=== PATIENT | female | born 1945 | race Caucasian/White ===

== ENCOUNTER → 2016-06-29 | Day surgery (SDC) | payer MEDICARE ==
[~2016-06-29] MED LIST: ADVIL200 M1; AMLODIPINE-BENA1 CAP PO; ASPIRIN EC81 M1 PO; GLUCOTROL PO; JANUMET 50-1,1 UDTAB PO; LISINOPRIL20 MG PO; LOTENSIN20 MG PO; SIMVASTATIN20 MG PO
--- NOTE | ~2016-06-29 | OR ---
Unit #: [id number] #: [id number] Patient: MICKEY DIAZ [id number] [address] [address] [id number] MR#: [id number] NAME: MICKEY DIAZ ROOM: Date of Procedure: 06/29/2016 Admission Date: 06/29/2016 Surgeon: Edison Briceno M.D. : 1945 Attending Physician: Edison Briceno M.D. Primary Care Physician: Elmer Vu M.D. OPERATIVE REPORT PROCEDURE PERFORMED Colonoscopy with snare polypectomy. INDICATIONS FOR PROCEDURE The patient with history of serrated adenoma with very high risk. MEDICATIONS Monitored anesthesia. POSTOPERATIVE FINDINGS 1. Previous site of polypectomy was identified and appears normal without any residual or recurrent polyp. 2. A 6 mm polyp, rectum, snared and sent for histopathology. 3. Internal hemorrhoids. PLAN Repeat colonoscopy in 3 years. DESCRIPTION OF PROCEDURE The patient was explained of the procedure, risks, and benefits along with the risks and benefits of anesthesia. She was brought to the endoscopy room. Propofol anesthesia was given. Rectal exam was done, which was normal. Colonoscope was lubricated, passed up the rectum, advanced under direct vision all the way to the cecum. Cecum was identified by ileocecal valve and appendiceal orifice. Previous polypectomy site was identified. No recurrent growth was seen. Polyp seen in rectum was snared and sent for histopathology. I retroflexed in the rectum, internal hemorrhoids were noted. Gently, the scope was pulled out. She tolerated it well. No major complications were seen. Dictated by... Bharat Langley/roseline TD: 07/09/2016 01:20 JOB #: [id number] Unit #: [id number] #: [id number] Patient: MICKEY DIAZ OPERATIVE REPORT X Edison Briceno MD PROCEDURE OPERATIVE NOTE
== END | disposition home or self-care (01) ==
LOC: COPS 09:04
DX: Z12.11 Encounter for screening for malignant neoplasm of colon (principal); K62.1 Rectal polyp; K64.8 Other hemorrhoids; I10 Essential (primary) hypertension; E11.9 Type 2 diabetes mellitus without complications; K21.9 Gastro-esophageal reflux disease without esophagitis; E78.5 Hyperlipidemia, unspecified; Z87.440 Personal history of urinary (tract) infections; Z90.49 Acquired absence of other specified parts of digestive tract; Z90.710 Acquired absence of both cervix and uterus; Z96.652 Presence of left artificial knee joint; Z98.42 Cataract extraction status, left eye; Z98.890 Other specified postprocedural states
CPT/HCPCS: 82947; 88305; J2250